=== PATIENT | male | born 1950 | race Caucasian/White ===

== ENCOUNTER 2020-09-04 06:56 | Day surgery (SDC) | payer OTHER ==
[2020-09-04] MEDS ORDERED: Ringers Lactate 1,000 ML IV ONE (07:31)
[2020-09-04] MEDS ORDERED: LIDOCAINE 1% MPF 5 ML VIAL ONE (08:12)
[2020-09-04] MEDS ORDERED: propofoL 200 MG/20 ML VIAL IV ONE (08:12)
--- NOTE | 2020-09-04 08:34 | ENDO RPT ---
[address], [address] COLONOSCOPY PROCEDURE REPORT EXAM DATE: 09/04/2020 PATIENT NAME: Christopher Deluna MR #: [id number] BIRTHDATE: 1950 ATTENDING: Art Gama DR STATUS: outpatient [employer] OPERATOR: Osiris Hernandes RN and Sussy Tucker RN INDICATIONS: The patient is a 70 yr old Male here for a colonoscopy due to colon cancer screening PROCEDURE PERFORMED: Colonoscopy with biopsy - cold polypectomy MEDICATIONS: Per Anesthesia. ESTIMATED BLOOD LOSS: None CONSENT: The patient understands the risks and benefits of the procedure and understands that these risks include, but are not limited to: sedation, allergic reaction, infection, perforation and/or bleeding. Alternative means of evaluation and treatment include, among others: physical exam, x-rays, and/or surgical intervention. The patient elects to proceed with this endoscopic procedure. DESCRIPTION OF PROCEDURE: During intra-op preparation period all mechanical medical equipment was checked for proper function. Hand hygiene and appropriate measures for infection prevention was taken. Procedure, possible complications, alternatives including, but not limited to possibility of bleeding, perforation, tear, infection, sepsis, need for surgery, need for blood transfusion, were explained to the patient. After the risks, benefits and alternatives of the procedure were thoroughly explained, Informed consent was verified, confirmed and timeout was successfully executed by the treatment team. The patient was placed in the left lateral position. A digital rectal exam was performed and revealed internal hemorrhoids. After appropriate level of anesthesia, the scope was passed. The EC-[id number] ([id number]) endoscope was introduced through the anus and advanced to the cecum, which was identified by both the appendix and ileocecal valve. The quality of the prep was fair. The instrument was then slowly withdrawn as the colon was fully examined. Scope withdrawal time was 9 minutes. COLON FINDINGS: Five small medium sized smooth semi-pedunculated polyps, ranging between 3-7mm in size, with friable surfaces were found at the hepatic flexure and in the transverse colon. A polypectomy was performed using snare cautery, with a cold snare and with cold forceps. The resection was complete, the polyp tissue was completely retrieved and sent to histology. Retroflexed views revealed no abnormalities. The scope was then completely withdrawn from the patient and the procedure terminated. ADVERSE EVENTS: There were no complications. IMPRESSIONS: Five small medium sized semi-pedunculated polyps, ranging between 3-7mm in size, were found at the hepatic flexure and in the transverse colon; polypectomy was performed using snare cautery, with a cold snare and with cold forceps RECOMMENDATIONS: 1. follow-up: office 2 week(s) 2. fiber rich diet 3. await biopsy results 4. avoid NSAIDS for 2 weeks 5. Monitor for any evidence of rectal bleeding. 6. hemorrhoidal hygiene 7. yearly hemoquant RECALL: Return in 1 year(s) for Colonoscopy, pending biopsy results. [address] eSigned: Art Gama DR 09/04/2020 8:34 AM cc: CPT CODES: ICD9 CODES: PATIENT NAME: Christopher Deluna MR#: [id number]
[2020-09-04 09:16] VITALS: BP 110/45; TEMP 97.8; O2SAT 100
== END 2020-09-04 09:20 | disposition home or self-care (01) ==
LOC: OR 06:56
PROVIDERS: ATTEND Surgery
PROC: 0DBM8ZX Excision of Descending Colon, Via Natural or Artificial Opening Endoscopic, Diagnostic (ICD-10-PCS; 2020-09-04)
PROC: 0DBL8ZX Excision of Transverse Colon, Via Natural or Artificial Opening Endoscopic, Diagnostic (ICD-10-PCS; principal; 2020-09-04 08:00)
DX: Z12.11 Encounter for screening for malignant neoplasm of colon (principal); K63.5 Polyp of colon
CPT/HCPCS: 88305; 45380; 45385; J2704; J7120

== ENCOUNTER 2023-06-09 06:42 | Day surgery (SDC) | payer OTHER, MEDICARE ==
[2023-06-06 11:48] LABS: Absolute Basophils 0.1 K/uL (0-0.5); Absolute Eosinophils 0.1 K/uL (0-0.5); Absolute Monocytes 0.7 K/uL (0.1-1.3); Absolute Neutrophil 4.3 K/uL (1.8-8.0); Eosinophils % 1.6 % (0-4.4); Hematocrit 46.1 % (39.6-49.0); Hemoglobin 15.4 g/dL (13.6-17.9); Lymphocytes % 28.5 % (15.3-44.8); MCHC 33.3 g/dL (32.0-36.0); MCV 87.1 fL (80-100); MPV 7.9 fL (7.6-11.3); Monocytes % 9.2 % (3.3-12.3); Neutrophils % 59.7 % (41.7-73.7); Platelets 283 thou/uL (152-406); Red Cell Distribution Width 14.2 % (12.1-15.2)
[2023-06-06 11:54] LABS: PT Prothrombin Time 12.1 SECONDS (9.5-12.5); PTT, Activated Partial Thromb 34.6 SECONDS (24.3-36.9); Protime INR 1.1
[2023-06-06 12:01] LABS: Anion Gap 9.1 mEq/L (5.0-15.0); Potassium 4.1 mEq/L (3.5-5.1)
--- NOTE | 2023-06-07 12:48 | EKG ---
Test Date: 2023-06-06 Test Time: 11:31:50 Pattern Marking Supervisor: [place] MEASUREMENT RESULTS: Intervals: Rate: 70 [place]: QRSD: 142 QT: 424 QTc: 457 [place]: P: [place]: QRS: -68 T: 111 INTERPRETIVE STATEMENTS: Electronic ventricular pacemaker No previous ECG available for comparison Electronically Signed On 06-07-23 12:45:49 CDT by Christiano Mckeon
[2023-06-09] MEDS: NA CHLORIDE 0.9% 1,000 ML ONE (07:15)
[2023-06-09] MEDS ORDERED: propofoL 200 MG/20 ML VIAL IV ONE (07:53)
[2023-06-09] MEDS ORDERED: EPHEDRINE SULF 50 MG/ML VIAL ONE (07:53)
[2023-06-09] MEDS ORDERED: LIDOCAINE 1% MPF 5 ML VIAL ONE (07:53)
[2023-06-09 08:43] VITALS: O2SAT 100
[2023-06-09 10:56] VITALS: BP 113/80; TEMP 97
== END 2023-06-09 09:11 | disposition home or self-care (01) ==
LOC: OR 06:42
PROVIDERS: ATTEND Surgery
PROC: 0DBL8ZX Excision of Transverse Colon, Via Natural or Artificial Opening Endoscopic, Diagnostic (ICD-10-PCS; 2023-06-09)
PROC: 0DBK8ZX Excision of Ascending Colon, Via Natural or Artificial Opening Endoscopic, Diagnostic (ICD-10-PCS; principal; 2023-06-09 08:00)
DX: Z12.11 Encounter for screening for malignant neoplasm of colon (principal); Z86.010 Personal history of colon polyps; K57.30 Diverticulosis of large intestine without perforation or abscess without bleeding; K64.8 Other hemorrhoids; D12.2 Benign neoplasm of ascending colon; D12.3 Benign neoplasm of transverse colon
CPT/HCPCS: 93005; 85025; 80048; 36415; 85610; 82947 ×2; 88304; 85730; 45380; J2704; J2001; J7030; 88305